=== PATIENT | male | born 1990 | race Two or more races ===

== ENCOUNTER 2017-12-18 15:03 | Emergency (ER) | payer SELFPAY ==
[~2017-12-18] VITALS: Ht 162.6 cm; Wt 72.6 kg
[~2017-12-18 15:03] MED LIST: CYCLOBENZAPRINE10 MG PO; IBUPROFEN600 MG PO; NKM; VICODIN 5-5001 EACH PO
[2017-12-18 15:36] VITALS: BP 108/76
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
--- NOTE | 2017-12-18 15:43 | Diagnostic Imaging Report ---
Indication: pain Findings: 3 views of the left hand were obtained. Normal alignment is demonstrated. No acute fractures, erosions, or periosteal reaction are seen. Soft tissues are unremarkable. Impression: No acute findings.
== END 2017-12-18 15:34 | disposition home or self-care (01) ==
LOC: EMR 15:16
DX: S60.222A Contusion of left hand, initial encounter (principal); Y04.0XXA Assault by unarmed brawl or fight, initial encounter; Y92.9 Unspecified place or not applicable
CPT/HCPCS: 99283